=== PATIENT | male | born 1955 | race Caucasian/White ===

== ENCOUNTER 2018-06-27 02:07 | Outpatient (CLI) | payer BC, SELFPAY ==
[2018-06-27 11:44] LABS: Triglyceride 341 mg/dL (30-150)
== END 2018-06-27 02:08 ==
PROVIDERS: PCP Family Medicine; Visit Provider Family Medicine
DX: E78.1 Pure hyperglyceridemia (principal)
CPT/HCPCS: 36415; 84478

== ENCOUNTER 2019-01-31 02:26 | Outpatient (CLI) | payer BC, SELFPAY ==
[2019-01-31 07:48] LABS: Uric Acid 6.2 mg/dL (3.5-7.2)
== END 2019-01-31 02:46 ==
PROVIDERS: PCP Family Medicine; Visit Provider Family Medicine
DX: M10.9 Gout, unspecified (principal)
CPT/HCPCS: 36415; 84550

== ENCOUNTER 2019-03-21 02:09 | Outpatient (CLI) | payer BC, SELFPAY ==
[2019-03-21 08:49] LABS: Anion Gap 11.1 mmol/L (3-11); BUN 15 mg/dL (7-18); CO2 27.9 mmol/L (21.0-32.0); CREATININE 0.91 mg/dL (0.70-1.30); Calcium 8.8 mg/dL (8.5-10.1); Chloride 99 mmol/L (98-107); Cholesterol 187 mg/dL (50-200); Glucose 100 mg/dL (70-100); HDL Cholesterol 40 mg/dL (40-60); LDL CHOLESTEROL 68 mg/dL (<100); Sodium 138 mmol/L (136-145); Triglyceride 538 mg/dL (30-150)
[2019-03-21 08:59] LABS: Uric Acid 5.3 mg/dL (3.5-7.2)
== END 2019-03-21 02:29 ==
PROVIDERS: PCP Family Medicine; Visit Provider Family Medicine
DX: E78.1 Pure hyperglyceridemia (principal); M10.9 Gout, unspecified
CPT/HCPCS: 36415; 80048; 80061; 83721; 84550

== ENCOUNTER 2019-05-07 01:42 | Outpatient (CLI) | payer BC, SELFPAY ==
[2019-05-07 09:01] LABS: Calculated LDL 48; Cholesterol 153 mg/dL (50-200); HDL Cholesterol 46 mg/dL (40-60); Triglyceride 295 mg/dL (30-150)
== END 2019-05-07 02:02 ==
PROVIDERS: PCP Family Medicine; Visit Provider Family Medicine
DX: E78.1 Pure hyperglyceridemia (principal)
CPT/HCPCS: 36415; 80061; 83721

== ENCOUNTER 2019-09-29 09:20 | Emergency (ER) | payer BC, SELFPAY ==
[2019-09-29] VITALS (48 sets, daily range): BP systolic 157–197; BP diastolic 65–98; PULSE 76–96; RESP 10–26; TEMP 36.9; O2SAT 91–100
--- NOTE | 2019-09-29 09:33 | ED.GENADUL_ITS ---
Discharge Plan Disposition Patient Disposition: HOME Condition: Improving Discharge Details Chief Complaint: Chest Pain Clinical Impression: Atypical chest pain, Abdominal pain, Alcohol use, Hypertension Primary Care Provider: Choco Estrada ED Provider: Manjula Evans Home Meds and New Rx's Prescriptions: New famotidine [Pepcid] 20 mg tablet 20 mg PO DAILY Qty: 14 RF: 0 hydrochlorothiazide 12.5 mg tablet 12.5 mg PO DAILY Qty: 30 RF: 0 Continued allopurinol 300 mg tablet 300 mg PO DAILY Qty: 90 RF: 4 Flovent HFA 110 mcg/actuation HFA aerosol inhaler 2 puff IH BID Qty: 12 RF: 4 colchicine 0.6 mg Capsule 0.6 mg PO DAILY RF: 0 Discharge Instructions Instructions: Chest Pain (ED), Gastritis (ED), Esophageal Spasm (ED), Abdominal Pain (ED), Hypertension (ED) Additional Instructions: It is unclear what is the exact etiology of your symptoms today. It is possible that it could be musculoskeletal or gastrointestinal. You can alternate ice and heat to the affected area and purchase [id number] Lidoderm patches to help with muscular pain. For gastrointestinal pain, take the Pepcid daily for 2 weeks and consider cutting back on some alcohol use to see if this improves your symptoms. You were given instructions about esophageal spasm or gastritis for further information but it is unclear if this is the cause of your symptoms at this time. Follow-up with your primary care doctor within the next week for reevaluation and for referral for outpatient stress test if your symptoms persist or worsen. You can start taking the blood pressure medicine prescription you were given today or you can discuss this further with Dr. Estrada before starting. You can also follow-up with surgery outpatient for evaluation and for possible upper endoscopy to evaluate your esophagus and stomach lining. Return to the emergency department at any time if you develop any worsening or new concerning symptoms. Referrals: Juliet Mensah MD [ [facility] STAFF PHYSICIAN] - Discharge Data Discharge Physician: Manjula Evans Medical Decision Making [id number] -- 64-year-old male with a history of gout and hypertension presents with 5 episodes of left-sided chest pain over the past 2 days. Patient also is a daily drinker, approximately 4 hard liquor drinks daily, states he drinks 6 drinks a few days ago. Describes the pain is intermittent, sharp and stabbing, 6/10 at its worst that occurs for 1 second and then resolves. States it occurred this morning while lifting a laundry basket. He denies any known injury. He states the pain radiates from his left chest down to the right to his umbilicus. He denies any chest pain at present. He denies any associated symptoms of fever, cough, n ausea, vomiting, dizziness with this. He also complains of left upper quadrant mild dull aching pain currently 2/10 since yesterday. He admits to normal appetite. He denies any recent surgeries, travel, leg pain or swelling. EKG on arrival notes a rate of 91, sinus with T wave inversion in lead III. No acute ST ischemic changes. Differential diagnosis includes ACS, arrhythmia, electrolyte abnormality, pneumonia, PE, pancreatitis, GERD, gastritis, PUD. Will place an IV, bolus IV fluids, Pepcid, GI cocktail, screening labs as well as CT chest and abdomen. 1120 --labs and imaging reviewed. Troponin negative. Magnesium 1.3. CT chest and abdomen negative. Patient admits to one episode of the sharp chest pain. States his left upper quadrant pain is resolved. As he had 3 episodes today which is been more frequent since onset, will check a second troponin. His blood pressure has remained elevated above baseline. He states his systolic blood pressures in the 130s. Pressure 180s/80s. Patient seems extremely anxious. Will give a dose of Ativan and reassess. 1230 --repeat EKG notes a rate of 84, sinus with more diffuse T wave inversion noted in 2, 3, V4 and V6 which appears increased from first EKG. There is no acute ST elevation or depression. We will consult with [facility] cardiology to review EKGs. Nurse states that patient has had 3 more episodes of twinges of chest pain. He admits to some worsening of pain with lifting his head. Will place a Lidoderm patch and give a dose of Toradol. 1315 --discussed with [facility] cardiology who reviewed EKGs. Feel that the T wave inversion is nonspecific and not consistent with an acute coronary process. Second troponin negative. Patient states his symptoms are much improved. Discussed that I feel that his symptoms may be more GI related such as esophageal spasm, gastritis, GERD, peptic ulcer disease or musculoskeletal. Patient states he feels good to go home. BP remained mildly elevated here. Systolic 160s to 180s. A dose of hydrochlorothiazide was given as well as a prescription. He is advised to call his primary care doctor tomorrow to schedule follow-up appointment for reevaluation and for referral for outpatient stress test if symptoms persist or worsen. He was also given surgery follow-up information for evaluation and for possible upper endoscopy. He is advised to check his blood pressure regularly. He was advised to cut back on his alcohol use which may be contributing to his symptoms. He was advised to return here anytime if symptoms worsen or any new concerning symptoms. Medical Records Medical records reviewed: Yes I reviewed the patient's medical records. Imaging Data Radiologic Study: Radiologist's impression: CT Angiography Chest With Contrast Exam date and time: 09/29/2019 9:46 AM Clinical history: 64 years old, male; Other: Luq abd pain, R/O pancreatitis; Other: Chest pain, R/O pe TECHNIQUE: Imaging protocol: Computed tomographic angiography of the chest with intravenous contrast. 3D rendering: MIP reconstructed images were created and reviewed. Radiation optimization: All CT scans at this facility use at least one of these dose optimization techniques: automated exposure control; mA and/or kV adjustment per patient size (includes targeted exams where dose is matched to clinical indication); or iterative reconstruction. Contrast material: OMNIPAQUE 350; Contrast volume: 100 ml; Contrast route: IV; COMPARISON: CR CHEST 2 VIEWS PA,LAT 11/21/2014 10:10 AM FINDINGS: Pulmonary arteries: Normal. No pulmonary emboli. Aorta: Unremarkable. No aortic aneurysm. No aortic dissection. Lungs: Unremarkable. No consolidation. No masses. Pleural space: Unremarkable. No pneumothorax. No pleural effusion. Heart: Coronary artery calcification/stents noted. Lymph nodes: Unremarkable. No enlarged lymph nodes. Bones/joints: Unremarkable. No acute fracture. Soft tissues: Unremarkable. IMPRESSION: No evidence for pulmonary embolus. COMMENT: Preliminary interpretation is based on receipt of 2937 image(s). A final report will be issued subsequently. CT Abdomen And Pelvis With Contrast Exam date and time: 09/29/2019 9:46 AM Clinical history: 64 years old, male; Other: Luq abd pain, R/O pancreatitis; Other: Chest pain, R/O pe TECHNIQUE: Imaging protocol: Computed tomography of the abdomen and pelvis with intravenous contrast. Contrast material: OMNIPAQUE 350; Contrast volume: 100 ml; Contrast route: IV; COMPARISON: CR CHEST 2 VIEWS PA,LAT 11/21/2014 10:10 AM FINDINGS: Liver: Mild fatty liver. Gallbladder and bile ducts: Gallstones present. Pancreas: Normal. No ductal dilation. Spleen: Normal. No splenomegaly. Adrenals: Normal. No mass. Kidneys and ureters: Normal. No hydronephrosis. Stomach and bowel: Diverticulosis without acute diverticulitis. Appendix: Appendix well seen, within normal limits. Appendix well seen, within normal limits. Intraperitoneal space: Unremarkable. No free air. No significant fluid collection. Vasculature: Mild atherosclerotic change present in the vasculature. Lymph nodes: Unremarkable. No enlarged lymph nodes. Bladder: Unremarkable as visualized. Reproductive: Unremarkable as visualized. Bones/joints: Beam hardening artifact noted from right hip prosthesis. Soft tissues: Right sided fat containing inguinal hernia. IMPRESSION: No acute abnormality seen to account for symptoms. Lab Data Lab results reviewed: Yes I reviewed the patient's lab results. Labs: Laboratory Tests Range/Units 09/29/19 09/29/19 09/29/19 09:35 09:35 09:35 WBC (4.4-10.8) k/cumm 9.00 RBC (4.50-6.00) m/cumm 4.41 L Hgb (13.5-17.5) g/dL 14.6 Hct (40.0-50.0) % 43.2 MCV (80-95) fL 98.0 H MCH (27.0-33.0) pg 33.1 H MCHC (32.0-36.0) g/dL 33.8 RDW (11.8-14.1) % 12.9 Plt Count (130-400) x1000/uL 202 MPV (8.0-11.0) fL 10.7 Immature Gran % 0.7 Neutrophils % 74.2 Lymphocytes % 15.4 Monocytes % 8.4 Eosinophils % 0.7 Basophils % 0.6 Absolute Neutrophils (1.2-6.7) k/cumm 6.68 Absolute Lymphocytes (1.2-3.4) k/cumm 1.39 Absolute Monocytes (0.11-0.7) k/cumm 0.76 H Absolute Eosinophils (0.0-0.7) k/cumm 0.06 Absolute Basophils (0.0-0.2) k/cumm 0.05 Sodium (136-145) mmol/L 140 Potassium (3.5-5.1) mmol/L 3.5 Chloride (98-107) mmol/L 103 Carbon Dioxide (21.0-32.0) mmol/L 29.2 Anion Gap (3-11) mmol/L 7.8 BUN (7-18) mg/dL 11 Creatinine (0.70-1.30) mg/dL 1.20 Estimated GFR/1.73 m2 (mL/min/1.73m2) >= 60.00 Glucose (70-100) mg/dL 112 H Calcium (8.5-10.1) mg/dL 8.6 Magnesium (1.8-2.4) mg/dL 1.3 L Total Bilirubin (0.2-1.0) mg/dL 0.5 AST (15-37) U/L 50 H ALT (16-63) U/L 52 Alkaline Phosphatase (46-116) U/L 57 Troponin I (0.00-0.06) ng/mL < 0.05 Total Protein (6.4-8.2) g/dL 7.2 Albumin (3.4-5.0) g/dL 3.2 L Lipase (73-393) U/L 148 Range/Units 09/29/19 12:21 WBC (4.4-10.8) k/cumm RBC (4.50-6.00) m/cumm Hgb (13.5-17.5) g/dL Hct (40.0-50.0) % MCV (80-95) fL MCH (27.0-33.0) pg MCHC (32.0-36.0) g/dL RDW (11.8-14.1) % Plt Count (130-400) x1000/uL MPV (8.0-11.0) fL Immature Gran % Neutrophils % Lymphocytes % Monocytes % Eosinophils % Basophils % Absolute Neutrophils (1.2-6.7) k/cumm Absolute Lymphocytes (1.2-3.4) k/cumm Absolute Monocytes (0.11-0.7) k/cumm Absolute Eosinophils (0.0-0.7) k/cumm Absolute Basophils (0.0-0.2) k/cumm Sodium (136-145) mmol/L Potassium (3.5-5.1) mmol/L Chloride (98-107) mmol/L Carbon Dioxide (21.0-32.0) mmol/L Anion Gap (3-11) mmol/L BUN (7-18) mg/dL Creatinine (0.70-1.30) mg/dL Estimated GFR/1.73 m2 (mL/min/1.73m2) Glucose (70-100) mg/dL Calcium (8.5-10.1) mg/dL Magnesium (1.8-2.4) mg/dL Total Bilirubin (0.2-1.0) mg/dL AST (15-37) U/L ALT (16-63) U/L Alkaline Phosphatase (46-116) U/L Troponin I (0.00-0.06) ng/mL < 0.05 Total Protein (6.4-8.2) g/dL Albumin (3.4-5.0) g/dL Lipase (73-393) U/L ECG Data Attestation: I personally reviewed and interpreted this ECG (s) as follows: Interpretation: #1 --Rate of 91, sinus, T wave inversion in lead III. No acute ST elevation or depression. DC 144. QTc 448. QRS 90. #2 --Rate of 84, sinus, T wave inversion in 2, 3, V4 and V5 which appears more diffuse than previous EKG. No acute ST elevation or depression. DC 144. QTc 418. QRS 92. HPI General Mode of arrival: ambulatory . Date/Time Provider Initiated Documentation: 09/29/19 09:21 . Limitations to Documentation: no limitations . Information obtained by: patient . History of Present Illness 64 year old M presents to the emergency department with the chief complaint of Chest pain, described as moderate, with intensity rated at 6 (At its worst, none now). Quality is described as stabbing and sharp, and is localized to the chest. Patient abdomen (Goes in a diagonal path from left chest down to the right to umbilicus). Patient started experiencing this day(s) (2) and it has been intermittent. Rest improves symptom(s), Movement worsens symptoms . Patient notes other (Also left-sided abdominal pain that is dull and aching, constant, currently 2/10). Patient did receive the following treatments prior to arrival, none Related Data Home Medications Medication Instructions Recorded Confirmed fluticasone propionate 110 2 puff IH BID #12 gm 12/21/18 09/29/19 mcg/actuation HFA aerosol inhaler allopurinol 300 mg tablet 300 mg PO DAILY #90 tab 07/16/19 08/02/19 colchicine 0.6 mg PO DAILY 09/29/19 09/29/19 famotidine [Pepcid] 20 mg PO DAILY #14 tab 09/29/19 hydrochlorothiazide 12.5 mg PO DAILY #30 tab 09/29/19 Previous Rx's Medication Instructions Recorded fluticasone propionate 110 2 puff IH BID #12 gm 12/21/18 mcg/actuation HFA aerosol inhaler allopurinol 300 mg tablet 300 mg PO DAILY #90 tab 07/16/19 famotidine [Pepcid] 20 mg PO DAILY #14 tab 09/29/19 hydrochlorothiazide 12.5 mg PO DAILY #30 tab 09/29/19 Allergies Allergy/AdvReac Type Severity Reaction Status Date / Time lisinopril AdvReac Cough and Verified 09/29/19 09:32 exacerbation gout. General Stated Complaint: Chest Pain ELIJAH: 2 Review of Systems All systems reviewed & are unremarkable except as noted in HPI and below Constitutional Constitutional: Reports as per HPI, Denies chills and Denies fever(s) Eyes Eyes: Denies blurry vision ENT Ears, Nose, Mouth, and Throat: Denies dizziness, Denies sore throat and Denies throat swelling Cardiovascular Cardiovascular: Reports chest pain and Denies dyspnea Respiratory Respiratory: Denies cough and Denies dyspnea Gastrointestinal Gastrointestinal: Reports abdominal pain, Denies diarrhea and Denies vomiting Genitourinary Genitourinary: Denies hematuria and Denies dysuria Musculoskeletal Musculoskeletal: Denies back pain and Denies numbness Integumentary/Breasts Skin/Breast: Denies lesions and Denies rash Neurologic Neurologic: Denies dizziness, Denies focal weakness and Denies numbness Allergic/Immunologic Allergic/Immunologic: Denies throat swelling [facility] Medical History AK (actinic keratosis) Allergic bronchitis (Resolved) Folliculitis Hypertension (Chronic) will start amlodipine 2.5 mg daily reviewed dosing, effects, s/e f/u in 2-3 weeks for repeat BP Call earlier for new or concerning s/s Lateral epicondylitis of right elbow (Resolved) Surgical History Open Carpal Tunnel release (~09/2017) B/L; DR. GHOSH Replacement, Partial Hip Family History Mother , 82 Depression Father , 93 Cancer Heart disease Brother Cancer Brother Cancer Hyperlipidemia Maternal Grandfather , 72 No problems noted. Paternal Grandfather , 76 No problems noted. Maternal Grandmother , 82 No problems noted. Paternal Grandmother , 88 No problems noted. Social History Smoking/Tobacco Use Status: Never Second Hand Exposure: Yes Alcohol Intake: current Alcohol Intake frequency: 3 or more drinks per day Alcohol type: hard liquor Drug use: Never Substance use type: does not use Caregiver/Support person: No Housing: house Pets and animals: No Sexually active: Yes Do you think of yourself as: straight/heterosexual Current gender identity: male What is your relationship status?: How often do you talk on the phone with friends or family?: three or more times per week How often do you get together with friends or relatives?: three or more times per week How often do you attend congregation or anabaptism services?: 1-3 times per year Do you belong to any clubs or organized social groups?: yes Panel score (0-1 are the most socially isolated patients): 2 What type of physical activity do you participate in: walking Duration: 45-60 minutes/day Frequency: 3-4 times per week Anabel/Presybeterian: Jainism Special anabel needs: No Seatbelt use: always Helmet use: Yes Helmet use: always Drive intox or ride w/intox cryogenic transport driver: No Do you feel safe at home: Yes Do you feel safe in your relationship?: Yes Exam Const General: cooperative, healthy appearing and no acute distress HENMT Head: normal to inspection Face and sinus: normal facial exam Eyes General: appearance normal, both eyes and all related structures EOM: EOM intact bilaterally Neck Neck: normal visual inspection and No submandibular swelling Lymphatic: no lymphadenopathy noted Chest Chest: normal inspection of the chest and no tenderness Resp Effort & Inspection: normal respiratory effort and able to speak in complete sentences Auscultation: clear to auscultation bilaterally Cardio Rate: regular rate Rhythm: regular rhythm GI Inspection: normal to inspection Palpation: soft, not firm, not rigid and tender in the LUQ Auscultation: normal bowel sounds Back/Spine/Pelvis Pelvis: no pain with anterior-posterior compression Skin General skin exam: no rashes or lesions noted Neuro General: alert, awake and oriented x3 Cognition: normal cognition Speech: speech normal Motor: muscle tone normal throughout Sensory Exam: no sensory deficits noted Extrem General: normal to inspection, full ROM, normal capillary refill, no calf tenderness bilaterally and no edema Psych Appearance: grossly normal Mental Status: mental status grossly normal Speech and Movement: speech and movement normal Affect: normal affect Course Vital Signs Vital signs: Vital Signs Temperature 98.4 F 09/29/19 09:27 Pulse 90 09/29/19 09:27 Respiratory Rate 18 09/29/19 09:27 Blood Pressure 181/83 H 09/29/19 09:27 Pulse Oximetry 99 09/29/19 09:27 Temperature 98.4 F 09/29/19 09:27 Temperature Source Skin 09/29/19 09:27 Pulse 90 09/29/19 09:27 Respiratory Rate 18 09/29/19 09:27 Respiratory Effort 09/29/19 09:30 Blood Pressure 181/83 H 09/29/19 09:27 Blood Pressure Position Supine 09/29/19 09:27 Pulse Oximetry 99 09/29/19 09:27 Oxygen Delivery Method Room Air 09/29/19 09:27 Oxygen Flow Rate 0 09/29/19 09:27 Pain Level 8 09/29/19 09:27
--- NOTE | 2019-09-29 09:45 | DI.CT_ITS ---
EXAM: CT CHEST PE ABD PELVIS W CLINICAL HISTORY: chest pain, LUQ abd pain, r/o pancreatitis,? PE TECHNIQUE: Post 100 cc Omnipaque [address] angiography was performed with multi-slice acquisition and multi-planar and/or 3D reconstruc tions. COMPARISON: ABDOMEN FLAT PLATE from 08/16/2010 CHEST 2 VIEWS PA,LAT from 11/21/2014 FINDINGS: Chest CT: There is no evidence of pulmonary emboli or aortic dissection. The aorta is normal in gamal meter. There are mild coronary artery calcifications. No pleural or pericardial effusions are seen. Lungs are expiratory. No infiltrate, mass or adenopathy is seen. There are mild degenerative dunlap es in the thoracic spine. Abdomen and pelvic CT: Liver shows fatty infiltration. Stones are noted in the gallbladder. There i s no gallbladder wall thickening, pericholecystic fluid or biliary dilatation. The spleen, pancreas, adrenals and kidneys are unremarkable. The appendix appears normal. There are multiple diverticula in the sigmoid colon but no evidence of diverticulitis. There is no bowel wall thickening or dilata tion. There is a normal quantity of stool. There is a right hip prosthesis creating artifact in the pelvis. The prostate appears mildly enlarged. The bladder is unremarkable. There is a small fatty containing right inguinal hernia. Aorta is normal in diameter. Degenerative disc changes seen at L 5-S1. IMPRESSION: No evidence of pulmonary emboli or other acute abnormality. Gallstones and fatty liver are incidenta lly noted.
[2019-09-29 09:49] LABS: Abs Immature Grans 0.06 k/cumm (0.0-0.09); Absolute Basophil Count 0.05 k/cumm (0.0-0.2); Absolute Eosinophil Count 0.06 k/cumm (0.0-0.7); Absolute Lymphocyte Count 1.39 k/cumm (1.2-3.4); Absolute Monocyte Count 0.76 k/cumm (0.11-0.7); Absolute Neutrophil Count 6.68 k/cumm (1.2-6.7); Basophils % 0.6; Eosinophils % 0.7; HCT 43.2 % (40.0-50.0); HGB 14.6 g/dL (13.5-17.5); Immature Grans % 0.7; Lymphocytes % 15.4; Mean Corp. HGB Concentration 33.8 g/dL (32.0-36.0); Mean Corpuscular Hemoglobin 33.1 pg (27.0-33.0); Mean Platelet Volume 10.7 fL (8.0-11.0); Monocytes % 8.4; Neutrophils % 74.2; Platelet Count 202 x1000/uL (130-400); RBC 4.41 m/cumm (4.50-6.00); RBC Distribution Width 12.9 % (11.8-14.1)
[2019-09-29 10:05] LABS: ALT 52 U/L (16-63); AST 50 U/L (15-37); Albumin 3.2 g/dL (3.4-5.0); Alkaline Phosphatase 57 U/L (46-116); Anion Gap 7.8 mmol/L (3-11); BUN 11 mg/dL (7-18); Bilirubin, Total 0.5 mg/dL (0.2-1.0); CO2 29.2 mmol/L (21.0-32.0); Calcium 8.6 mg/dL (8.5-10.1); Chloride 103 mmol/L (98-107); Glucose 112 mg/dL (70-100); Magnesium 1.3 mg/dL (1.8-2.4); Potassium 3.5 mmol/L (3.5-5.1); Sodium 140 mmol/L (136-145); Total Protein 7.2 g/dL (6.4-8.2)
[2019-09-29 10:10] LABS: Lipase 148 U/L (73-393); Troponin I < 0.05 ng/mL (0.00-0.06)
[2019-09-29] MEDS: Omnipaque 350 MG/ML 100 ML BTL IJ (10:40)
[2019-09-29] MEDS: Normal Saline Flush 10 ML SYR IVP (10:40)
[2019-09-29] MEDS: FAMOTIDINE 20 MG/50 ML BAG 200 MG IVPB (10:40)
--- NOTE | 2019-09-29 11:11 | DI.VRAD_ITS ---
PROCEDURE INFORMATION: Exam: CT Angiography Chest With Contrast Exam date and time: 09/29/2019 9:46 AM Clinical history: 64 years old, male; Other: Luq abd pain, R/O pancreatitis; Other: Chest pain, R/O pe TECHNIQUE: Imaging protocol: Computed tomographic angiography of the chest with intravenous contrast. 3D rendering: MIP reconstructed images were created and reviewed. Radiation optimization: All CT scans at this facility use at least one of these dose optimization techniques: automated exposure control; mA and/or kV adjustment per patient size (includes targeted exams where dose is matched to clinical indication); or iterative reconstruction. Contrast material: OMNIPAQUE 350; Contrast volume: 100 ml; Contrast route: IV; COMPARISON: CR CHEST 2 VIEWS PA,LAT 11/21/2014 10:10 AM FINDINGS: Pulmonary arteries: Normal. No pulmonary emboli. Aorta: Unremarkable. No aortic aneurysm. No aortic dissection. Lungs: Unremarkable. No consolidation. No masses. Pleural space: Unremarkable. No pneumothorax. No pleural effusion. Heart: Coronary artery calcification/stents noted. Lymph nodes: Unremarkable. No enlarged lymph nodes. Bones/joints: Unremarkable. No acute fracture. Soft tissues: Unremarkable. IMPRESSION: No evidence for pulmonary embolus. COMMENT: Preliminary interpretation is based on receipt of 2937 image(s). A final report will be issued subsequently. PROCEDURE INFORMATION: Exam: CT Abdomen And Pelvis With Contrast Exam date and time: 09/29/2019 9:46 AM Clinical history: 64 years old, male; Other: Luq abd pain, R/O pancreatitis; Other: Chest pain, R/O pe TECHNIQUE: Imaging protocol: Computed tomography of the abdomen and pelvis with intravenous contrast. Contrast material: OMNIPAQUE 350; Contrast volume: 100 ml; Contrast route: IV; COMPARISON: CR CHEST 2 VIEWS PA,LAT 11/21/2014 10:10 AM FINDINGS: Liver: Mild fatty liver. Gallbladder and bile ducts: Gallstones present. Pancreas: Normal. No ductal dilation. Spleen: Normal. No splenomegaly. Adrenals: Normal. No mass. Kidneys and ureters: Normal. No hydronephrosis. Stomach and bowel: Diverticulosis without acute diverticulitis. Appendix: Appendix well seen, within normal limits. Appendix well seen, within normal limits. Intraperitoneal space: Unremarkable. No free air. No significant fluid collection. Vasculature: Mild atherosclerotic change present in the vasculature. Lymph nodes: Unremarkable. No enlarged lymph nodes. Bladder: Unremarkable as visualized. Reproductive: Unremarkable as visualized. Bones/joints: Beam hardening artifact noted from right hip prosthesis. Soft tissues: Right sided fat containing inguinal hernia. IMPRESSION: No acute abnormality seen to account for symptoms. COMMENT: Preliminary interpretation is based on receipt of 2937 image(s). A final report will be issued subsequently. Dictated and Authenticated by: Meche Schmidt MD. Ordering:LINA Fair MD
[2019-09-29] MEDS: LORazepam 2 MG/ML VIAL 0.5 MG IVP (12:50)
[2019-09-29 13:11] LABS: Troponin I < 0.05 ng/mL (0.00-0.06)
[2019-09-29] MEDS: Lidocaine 5% Patch 1 PATCH TP (13:14)
[2019-09-29] MEDS: Magnesium Oxide 400 MG TAB 800 MG PO (13:15)
[2019-09-29] MEDS: Ketorolac 30 MG/ML VIAL IVP (13:15)
[2019-09-29] MEDS: hydroCHLOROthiazide 12.5 MG TAB PO (13:38)
== END 2019-09-29 14:11 | disposition home or self-care (01) ==
PROVIDERS: Emergency Provider Physician Assistant; PCP Family Medicine
DX: R07.89 Other chest pain (principal); R10.12 Left upper quadrant pain; F10.10 Alcohol abuse, uncomplicated; I10 Essential (primary) hypertension
CPT/HCPCS: 36415; 71275; 74177; 80053; 83690; 93005; 96374; 96375; 99285; 83735; 84484; 85025; 93010; J1885; J2060; J3490

== ENCOUNTER 2021-03-17 04:35 | Outpatient (CLI) | payer BC, SELFPAY ==
[2021-03-17 08:35] LABS: CREATININE 0.9 mg/dL (0.70-1.30); Potassium 4.2 mmol/L (3.5-5.1)
[2021-03-17 08:56] LABS: Hemoglobin A1C 5.1 % (<5.7)
[2021-03-17 10:30] LABS: Calculated LDL 94 mg/dL (<100); Cholesterol 197 mg/dL (<200); HDL Cholesterol 53 mg/dL (40-60); Triglyceride 254 mg/dL (<150)
== END 2021-03-17 04:36 | disposition home or self-care (01) ==
LOC: LBO 04:35
PROVIDERS: PCP Nurse Practitioner; Visit Provider Nurse Practitioner
DX: I10 Essential (primary) hypertension (principal); E78.1 Pure hyperglyceridemia; Z13.1 Encounter for screening for diabetes mellitus
CPT/HCPCS: 36415; 80061; 82565; 83036; 84132

== ENCOUNTER 2021-03-24 03:10 | Outpatient (CLI) | payer BC, SELFPAY | END 2021-03-24 03:11 | disposition home or self-care (01) | LOC: LBO 03:10 | PROVIDERS: PCP Nurse Practitioner; Visit Provider Nurse Practitioner | DX: Z12.5 Encounter for screening for malignant neoplasm of prostate (principal); Z80.42 Family history of malignant neoplasm of prostate | CPT/HCPCS: 36415; 84153 ==

== ENCOUNTER 2021-05-24 02:20 | Outpatient (CLI) | payer BC, SELFPAY ==
--- NOTE | 2021-05-24 12:34 | DI.RAD_ITS ---
Exam(s) XR CERVICAL SPINE COMP 4-5V EXAM: XR CERVICAL SPINE COMP 4-5V CLINICAL HISTORY: rt cervical radiculopathy,m54.12. TECHNIQUE: 2D digital imaging was performed. COMPARISON: No exams were available for comparison FINDINGS: There is no evidence of fracture, listhesis, nor offset of the spinal laminar line. All the disc spa marlena exhibit normal height. On the oblique views there are no prominent Luschka joint osteophytes. N o cervical ribs. No prominent facet arthropathy. No focal osseous lesions. IMPRESSION: No significant radiographic findings. If clinically indicated follow-up MRI can be performed DATA REPOSITORY: RADIATION DOSE DELIVERED:
== END 2021-05-24 02:40 ==
PROVIDERS: PCP Nurse Practitioner; Visit Provider Nurse Practitioner
DX: M54.12 Radiculopathy, cervical region (principal)
CPT/HCPCS: 72050

== ENCOUNTER 2021-06-11 04:33 | Outpatient (CLI) | payer BC, SELFPAY ==
--- NOTE | 2021-06-11 07:00 | DI.MRI_ITS ---
Exam(s) MR THORACIC SPINE WO EXAM: MR THORACIC SPINE WO CLINICAL HISTORY: cervical radiculopathy,rt shoulder pain,m54.12,m25.511. TECHNIQUE: Multiplanar multisequence MRI of the Thoracic spine was performed. COMPARISON: No exams were available for comparison FINDINGS: Bones: The vertebral body heights are well maintained. There is mild exaggeration of the thoracic kyp hosis centered at T4-5. the signal characteristics are unremarkable. There is a hemangioma in the T5 vertebral body. There are endplate degenerative signal changes at multiple levels in the thoracic sp ine. Cord: The thoracic cord is normal size and signal intensity. No intrinsic cord lesion is present. Discs: No disc herniation or bulge is present. Soft tissues: Normal. T1-2: No disc herniation or bulge is identified.No central spinal canal or neural foraminal stenosis. T2-3: No disc herniation or bulge is identified.No central spinal canal or neural foraminal stenosis. T4-5: No disc herniation or bulge is identified.No central spinal canal or neural foraminal stenosis. T5-6: No disc herniation or bulge is identified.No central spinal canal or neural foraminal stenosis. T6-7: No disc herniation or bulge is identified.No central spinal canal or neural foraminal stenosis. T7-8: Mild diffuse disc bulge.No central spinal canal or neural foraminal stenosis. T8-9: No disc herniation or bulge is identified.No central spinal canal or neural foraminal stenosis. T9-10: No disc herniation or bulge is identified.No central spinal canal or neural foraminal stenosis . T10-11:No disc herniation or bulge is identified.No central spinal canal or neural foraminal stenosis . T11-12: No disc herniation or bulge is identified.No central spinal canal or neural foraminal stenosi s. T12-L1: No disc herniations or bulges are present. No central spinal canal or neural foraminal steno sis. IMPRESSION: No focal disc herniation, central spinal canal or neural foraminal stenosis in the thoracic spine. DATA REPOSITORY:
--- NOTE | 2021-06-11 07:00 | DI.MRI_ITS ---
Exam(s) MR CERVICAL SPINE WO EXAM: MR CERVICAL SPINE WO CLINICAL HISTORY: cervical radiculopathy,m54.12 TECHNIQUE: Multiplanar multisequence MRI of the cervical spine was performed without intravenous con trast. COMPARISON: No exams were available for comparison FINDINGS: BONES: Vertebral body heights are maintained. Intervertebral disc spaces are normal. Alignment is nor mal. Bone marrow signal intensity is within normal limits. CERVICAL CORD: Craniovertebral junction is unremarkable. The cervical cord is normal size and signal intensity. SOFT TISSUES: Unremarkable. C2-3: No disc herniation or bulge is identified. No significant central spinal canal or neural forami nal stenosis. C3-4: No disc herniation or bulge is identified. There is prominence of the left uncovertebral joint causing mild left neural foraminal stenosis. No central spinal canal or right neural foraminal steno sis. C4-5: There is a small central disc herniation. No significant central spinal canal or neural forami nal stenosis C5-6: There is a right paracentral disc herniation which does extend partially into the right neural foramen. There is resultant mild right neural foraminal narrowing. No significant central spinal ca nal stenosis is seen. No significant left neural foraminal stenosis. C6-7: No disc herniation or bulge is identified. No significant central spinal canal stenosis. There are mild hypertrophic changes seen at the left uncovertebral joint resulting in mild left neural for aminal narrowing. No significant right neural foraminal narrowing. C7-T1: No disc herniation or bulge is identified. No significant central spinal canal or neural georgette inal stenosis IMPRESSION: Multilevel degenerative changes throughout the cervical spine resulting in multilevel neural foramina l stenosis as described above. DATA REPOSITORY:
== END 2021-06-11 04:53 ==
PROVIDERS: PCP Nurse Practitioner; Visit Provider Nurse Practitioner
DX: M25.511 Pain in right shoulder (principal); M47.22 Other spondylosis with radiculopathy, cervical region; M48.02 Spinal stenosis, cervical region
CPT/HCPCS: 72141; 72146

== ENCOUNTER 2021-07-13 01:54 | Outpatient (CLI) | payer BC, SELFPAY ==
--- NOTE | 2021-07-13 | DI.RAD_ITS ---
Exam(s) XR SHOULDER RT COMPLETE 2+V EXAM: XR SHOULDER RT COMPLETE 2+V CLINICAL HISTORY: PROGRESSIVE ATRAUMATIC RT SHOULDER PAIN WITH MOVEMENT, M25.511. TECHNIQUE: 2D digital imaging was performed. COMPARISON: No exams were available for comparison FINDINGS: BONES: No acute fracture is present. No bony destructive lesion is seen. JOINTS: No dislocation present. Mild degenerative changes are seen at the glenohumeral joint with mi ld joint space narrowing and an osteophyte off the inferior aspect of the humeral head. SOFT TISSUE: Normal. IMPRESSION: Mild degenerative changes at the glenohumeral joint. DATA REPOSITORY: RADIATION DOSE DELIVERED:
== END 2021-07-13 02:14 ==
PROVIDERS: PCP Nurse Practitioner; Visit Provider Physician Assistant Medical
DX: M25.511 Pain in right shoulder (principal); M19.011 Primary osteoarthritis, right shoulder
CPT/HCPCS: 73030

== ENCOUNTER 2021-08-02 01:25 | Outpatient (CLI) | payer BC, SELFPAY ==
--- NOTE | 2021-08-02 | DI.MRI_ITS ---
Exam(s) MR UPPER JOINT RT WO EXAM: MR UPPER JOINT RT WO CLINICAL HISTORY: RT SHOULDER PAIN, POSITIVE MANEUVERS ON EXAM,M25.511 TECHNIQUE: Multiplanar multisequence MRI of the shoulder was performed. COMPARISON: CR XR SHOULDER RT COMPLETE 2+V from 07/13/2021 FINDINGS: MARROW:There is no evidence of fracture, Hill-Sachs deformity, nor ominous osseous lesions. There is a conglomeration of multiple small degenerative subarticular cysts on the posterolateral aspect of th e humeral head with combined measurement of 6 x 6 millimeters, this immediately subjacent to the inse rtional tendon of the infraspinatus. ROTATOR CUFF MECHANISM: AC JOINT/ACROMIUM: Mild degenerative changes. No prominent downgoing osteophytes. Undersurface of t he acromion is flat. No impingement hook at this level.. There is no evidence of os acromiale. Supraspinatus: Mild tendinitis signal. No tear. No atrophy. Infraspinatus: Intact. No evidence of tear nor muscle atrophy. Teres Minor: Intact. No evidence of tear nor muscle atrophy. Subscapularis/anterior cuff: There is intrasubstance signal abnormality at the musculotendinous junct ion of multipennate insertional fibers of the subscapularis-anterior cuff. No full-thickness tear BICEPS Tendon/labrum: Not displaced from the intertubercular groove although there is a small amount of fluid within the tendon sheath at this level. There is some increased signal seen within the farida ps tendon at and proximal to it is attachment to the anterosuperior labrum and there is also some sig nal abnormality in the superior labrum posterior to the biceps insertion site, consistent with elemen t of SLAP-type tear of the superior labrum. There is also tearing of the anterior labrum. Slight irregularity of the posterior labrum noted. In ferior labrum also exhibits some regularity. Degenerative subarticular cysts are seen in the osseous glenoid GLENOHUMERAL JOINT: There is significant degenerative osteoarthritic changes in the glenohumeral join t with significant cartilage thinning and there are opposing osteophytes in the inferior surfaces of the humeral head and osseous glenoid. Also degenerative subarticular cysts in the inferior and mid a spect of the osseous glenoid. No evidence of capsular tear. The inferior glenohumeral ligament is i ntact. QUADRILATERAL SPACE: No evidence of mass in the region of the axillary nerve and dorsal circumflex hu meral vessels. Visualized triceps muscle at this level appears unremarkable. IMPRESSION: 1. Main finding here is significant osteoarthritic degenerative change in the glenohumeral joint with articular cartilage loss and opposing osteophytes on the inferior articular surfaces of the humeral head and osseous glenoid, as well as degenerative subarticular cysts as described above. 2. In addition, there is multilevel labral tearing at the level of the anterior and superior labrum. Inferior labrum also somewhat irregular. Mild increased signal noted in the biceps tendon but witho ut high-grade tear nor displacement. Mild tenosynovitis of its tendon sheath is evident. 3. Significant signal abnormality at the musculotendinous junction of the anterior cuff-subscapularis but no full thickness tear nor atrophy. DATA REPOSITORY:
--- OUTSIDE RECORDS SUMMARY | 2021-08-02 01:27 | XMS_ITS ---
:1955 Author Organization [facility] Address [address] [place] [address] Care Team Providers Name Role Phone Dale Mabry Unavailable Unavailable PROBLEMS Type Condition ICD9-CM MJP29-[id number] Onset Condition SNOMED Cod e Code Code Dates Status Problem Pes planovalgus Q66.6 Active Problem Gout M10.9 Active Problem Gouty arthritis M10.9 Active 1074 [id number] of right foot Problem Hallux valgus M20.12 Active 545039 01 (acquired), left foot ALLERGIES No Known Allergies ENCOUNTERS Encounter Location Date Diagnosis [address], 14 Nov, 2019 Gout M10.9 ; [place] [address] left foot M20.5X 2 ; Pes planovalgus Q66. 6 and Hallux valgus (acquired ), left foot M20.[address], 13 Nov, 2019 [place] [address] IMMUNIZATIONS No Known Immunizations SOCIAL HISTORY Qualifiers Date Never Smoker REASON FOR REFERRAL FUNCTIONAL STATUS PLAN OF CARE Activity Details Follow Up prn Reason: VITAL SIGNS Height 66 in 2019-11-26 Weight 174 lbs 2019-11-26 BMI 28.08 kg/m2 2019-11-26 Temperature 98 degrees Fahrenheit 2019-11-26 Heart Rate 89 /min 2019-11-26 Respiratory Rate 18 /min 2019-11-26 Oximetry 98 % 2019-11-26 Blood pressure systolic 128 mm Hg 2019-11-26 Blood pressure diastolic 78 mm Hg 2019-11-26 MEDICATIONS Medication Instructions Dosage Frequency Start End Duration Statu s Date Date Famotidine 20 MG Orally Once a 1 tablet 24h 30 day(s ) Not-Ilya day at bedtime ing as needed Fluticasone Nasally Once a 1 spray in 24h 30 day(s) Active Propionate 50 MCG/ACT day each nostril Allopurinol 300 MG Orally Once a 1 tablet 24h Active day Losartan Potassium 50 Orally Once a 1 tablet 24h 30 day(s) Active MG day predniSONE 10 MG Orally Once a 1 tablet 24h 30 day(s ) Active day Colchicine 0.6 MG Orally Once a 1 tablet 24h 30 day( s) Active day hydroCHLOROthiazide as Acti ve 12.5 MG directed PROCEDURES Procedure Date Ordered Result Body Site POD-xray foot, 3 views Nov 26, 2019 INTERP FOOT, 3 VIEWS Nov 26, 2019 RESULTS Name Result Date Reference Range POD Foot, L 3V (POD2) REASON FOR VISIT Gout referral done, new POD PT. mrr, pt referred by Dr. Choco Estrada mrr, pt states that the left and right bunmion area of big toes are extremely tender and sore. , pt states that a blood pressure medication that he was placed on in February 2019 made his gout flair terribly. mrr, chart update Insurance Providers [facility] Member Patient Patient Patient Patient Patient Subscriber Subscriber Subscriber Group Insurance Plan Plan Plan Plan ID Relationship Address Phone Name Date of ID Name Date of No Type Insurance Insurance Insurance Coverage to Subscriber Address Phone Name Dates SELF PAY [address] SELF PAY self ZEKE [id number] [place] [address] [place] BLUE CROSS [phone] BLUE CROSS self ZEKE 1 [id number] OF [facility] [address] [id number] [id number] [id number] MEDICAL (GENERAL) HISTORY Type Description Date Medical History Acute gouty arthritis Medical History HTN (hypertension) Surgical History right hip replacement [place] 2005
== END 2021-08-02 01:45 ==
PROVIDERS: PCP Nurse Practitioner; Visit Provider Physician Assistant Medical
DX: M25.511 Pain in right shoulder (principal); M19.011 Primary osteoarthritis, right shoulder; S43.431A Superior glenoid labrum lesion of right shoulder, initial encounter; X58.XXXA Exposure to other specified factors, initial encounter
CPT/HCPCS: 73221

== ENCOUNTER 2022-03-18 02:56 | Outpatient (CLI) | payer BC, SELFPAY ==
[2022-03-18 10:20] LABS: Anion Gap 10.9 mmol/L (3-11); BUN 16 mg/dL (7-18); CO2 27.1 mmol/L (21.0-32.0); CREATININE 0.8 mg/dL (0.70-1.30); Calcium 8.5 mg/dL (8.5-10.1); Chloride 101 mmol/L (98-107); Cholesterol 194 mg/dL (<200); Glucose 109 mg/dL (74-106); HDL Cholesterol 43 mg/dL (40-60); Potassium 3.9 mmol/L (3.5-5.1); Sodium 139 mmol/L (136-145); Triglyceride 531 mg/dL (<150)
[2022-03-18 10:43] LABS: LDL CHOLESTEROL 62 mg/dL (<100)
[2022-03-18 18:42] LABS: PSA, Screening 0.9 ng/mL (<=4.5)
== END 2022-03-18 02:57 | disposition home or self-care (01) ==
LOC: LBO 02:56
PROVIDERS: PCP Nurse Practitioner; Visit Provider Nurse Practitioner
DX: E78.1 Pure hyperglyceridemia (principal); I10 Essential (primary) hypertension; Z12.5 Encounter for screening for malignant neoplasm of prostate; Z80.42 Family history of malignant neoplasm of prostate
CPT/HCPCS: 36415; 80048; 80061; 83721; 84153

== ENCOUNTER 2022-07-19 01:59 | Outpatient (CLI) | payer BC, SELFPAY ==
[2022-07-19 12:36] LABS: Source Nasal/Nares
[2022-07-19 18:15] LABS: COVID-19 PCR Negative (Negative)
== END 2022-07-19 02:00 | disposition home or self-care (01) ==
LOC: LBO 02:00
PROVIDERS: PCP Nurse Practitioner; Visit Provider Student in an Organized Health Care Education/Training Program
DX: Z20.822 Contact with and (suspected) exposure to COVID-19 (principal)
CPT/HCPCS: 87635

== ENCOUNTER 2022-07-21 09:08 | Day surgery (SDC) | payer BC, SELFPAY ==
--- NOTE | 2022-07-20 19:31 | W.ANESPRE ---
General Info Date of Service Date Performed: 07/21/22 Height: 5 ft 5 in Weight: 74.843 kg Body Mass Index (BMI): 27.4 Surgical Procedure: Operation Date: 07/21/22 11:10 Proposed Procedure Side Surgeon p Shoulder Rotator Cuff Arthroscopic w/Extensive Debridement, Bicep Tenodesis, Subacromial Decompression Right Jamar Hearn MD Meds Allergies and Home Medications Allergies Allergy/AdvReac Type Severity Reaction Status Date / Time lisinopril AdvReac Cough and Verified 07/21/22 09:31 exacerbation gout. Home Medication Medication Instructions Recorded carboxymethylcellulose sodium 0.5 1 drp ophthalmic (eye) BID 03/23/21 % eye drops in a dropperette (Refresh Plus) colchicine 0.6 mg capsule 0.6 mg PO DAILY PRN gout #30 caps 06/21/21 allopurinol 300 mg tablet 300 mg PO DAILY #90 tabs 10/28/21 atorvastatin 40 mg tablet 40 mg PO QHS #90 tabs 04/12/22 hydrochlorothiazide 12.5 mg tablet 12.5 mg PO DAILY #90 tabs 04/12/22 losartan 50 mg tablet 50 mg PO DAILY #90 tabs 04/12/22 Current Visit Medications: Current Medications Generic Name Dose Route Start Last Admin Trade Name Freq PRN Reason Stop Dose Admin Ringer's Solution 1,000 mls @ 30 mls/hr 07/21/22 06:00 IV 08/19/22 23:59 INFUSION BELKYS Cefazolin Sodium/Dextrose 2 gm in 50 mls @ 100 mls/hr 07/21/22 06:00 Ancef Duplex IVPB 08/19/22 23:59 PREOP BELKYS IV Miscellaneous Supplies 1 each 07/21/22 06:00 Iv Access IV 08/19/22 23:59 DIRECTED BELKYS Sodium Chloride 0 ml 07/21/22 06:00 Normal Saline Flush 10 Ml Syr IV 08/19/22 23:59 PRN PRN Sodium Chloride 0 ml 07/21/22 06:00 Normal Saline 10 Ml Vial IJ 08/19/22 23:59 DIRECTED PRN Sterile Water 0 ml 07/21/22 06:00 Water,Injection,Sterile 10 Ml Vial IJ 08/19/22 23:59 DIRECTED PRN PFSH Active Problems Active Problems: Problem Status Onset Code SLAP lesion of right shoulder S43.431A Arthritis of right shoulder region M19.011 Family history of prostate cancer Z80.42 Essential hypertension I10 Gout M10.9 Hypertriglyceridemia without hypercholesterolemia 05/15/18 E78.1 Medical History Medical History AK (actinic keratosis) Allergic bronchitis Bilateral carpal tunnel syndrome (07/31/17) Bilateral repair sep 2017 Cervical radiculopathy Folliculitis Lateral epicondylitis of right elbow Sensorineural hearing loss, bilateral (04/04/16) Surgical History Surgical History History of right hip replacement (04/26/06) Open Carpal Tunnel release (~09/2017) B/L; DR. GHOSH Replacement, Partial Hip Tobacco Smoking/Tobacco Use Status: Never Passive smoking exposure: Yes Second hand exposure: Yes Alcohol Alcohol Intake: current Alcohol intake frequency: a few times a week Alcohol type: hard liquor Substance Use Substance use: Never Substance use type: does not use Vital Signs and Lab Results Lab Results Blood Type / Crossmatch: No Data to Display Complete Blood Count: No Data to Display Complete Metabolic Panel: No Data to Display Liver Function Panel: No Data to Display Coagulation Panel: No Data to Display Cardiac Panel: No Data to Display Arterial Blood Gas: No Data to Display Venous Blood Gas: No Data to Display Pancreas Panel: No Data to Display Thyroid Panel: No Data to Display Infectious Disease: Coronavirus (COVID-19)(PCR) Negative (Negative) 07/19/22 08:14 Coronavirus 2019 Source Nasal/Nares 07/19/22 08:14 Blood Cultures: No Data to Display Toxicology Panel: No Data to Display Anesthesia Assessment and Plan Anesthesia History Personal History: No History of Anesthesia Complications Family History: No Family History of Anesthesia Complications Exercise Tolerance Exercise Tolerance: Metabolic Equivalents>4 Cardiac & Pulmonary Exam Cardiac Exam: Normal S1/S2 Heart Sounds Pulmonary Exam: Clear Bilateral Breath Sounds Implantable Cardiac Device Does patient have a Pacemaker or an ICD?: No Airway Exam Known Difficult Airway: No Mallampati Class: 2 Mouth Opening: Normal (> 3cm) Thyromental Distance: Greater than 3 cm Neck Range of Motion: Full ROM Neck Circumference: Normal Teeth Condition: Normal Dentition ASA Classification ASA Score: ASA 2 Emergency Case?: No NPO Status NPO Status: NPO Clears >2 hours, Solids >8 hours Anesthesia Plan Resuscitation Status: Full Code Anesthesia Technique: General Anesthesia Airway Planned: Endotracheal Tube Pain Management: Surgeon and patient request nerve block Monitors Used: Standard Monitors Preoperative Comments:: 67 yo male for right shoulder scope. Sig PMHx: cervical stenosis, HTN, never smoker occ EtOH. Previous Anes: CTS x 2 as GA without airway.
[2022-07-21] VITALS (9 sets, daily range): BP systolic 100–125; BP diastolic 55–84; PULSE 59–76; RESP 16–21; TEMP 36.2–36.6; O2SAT 92–98; BMI 27.4
[2022-07-21] MEDS: Lactated Ringers 1,000 ML 30 ML IV (09:58)
[2022-07-21] MEDS: ceFAZolin 2 GM/50 ML BAG IVPB (11:19)
--- NOTE | 2022-07-21 12:30 | PDOC.DSDIS_ITS ---
Discharge Plan Disposition Patient Disposition: HOME Condition: Stable Discharge Details Reason For Visit: Right shoulder surgery Attending Provider: Jamar Hearn Primary Care Provider: Jessica Juarez Home Meds and New Rx's Prescriptions: New aspirin 81 mg tablet,delayed release (DR/EC) 81 mg PO DAILY 14 Days Qty: 14 0RF naproxen 250 mg tablet 250 - 500 mg PO BID PRNQty: 40 0RF Rx Instructions: take with a meal oxycodone 5 mg tablet 5 - 10 mg PO Q4H MDD 30 mg PRN (Reason: moderate to severe pain) Qty: 18 0RF Continued carboxymethylcellulose sodium [Refresh Plus] 0.5 % dropperette 1 drp ophthalmic (eye) BID atorvastatin 40 mg tablet 40 mg PO QHS Qty: 90 4RF hydrochlorothiazide 12.5 mg tablet 12.5 mg PO DAILY Qty: 90 4RF losartan 50 mg tablet 50 mg PO DAILY Qty: 90 4RF colchicine 0.6 mg capsule 0.6 mg PO DAILY PRN (Reason: gout) Qty: 30 0RF allopurinol 300 mg tablet 300 mg PO DAILY Qty: 90 4RF Discharge Instructions Additional Instructions: Surgery: Right shoulder arthroscopy with biceps tenodesis, extensive debridement, and subacromial decompression. Activity: You should gradually increase range of motion motion and use of your shoulder. You may use your shoulder for all regular activities as long as you protect the biceps repair. Avoid weighted elbow flexion, reaching overhead, and lifting away from body for approximately 6 to 8 weeks. You may use the sling whenever you are out of the house for a few weeks. At home it is best to remove the sling and rest the arm on a pillow at your side or support the operative side with your other hand. A physical therapy prescription will be sent elect ronically to start in about 2 weeks. Prescriptions: Aspirin 81 mg take 1 daily to prevent a blood clot for 2 weeks Naproxen 250 mg take 1-2 every 12 hours with a meal as needed for moderate pain Oxycodone 5 mg take 1-2 every 4-6 hours as needed for severe pain You may use [id number] Tylenol (acetaminophen) as needed for mild pain. These pain medications may be taken all at once or in different combinations as needed. Also, recommend Colace (docusate) as a stool softener as surgery and pain medicine cause constipation. You may try wmil-flt-[id number] diphenhydramine (Benadryl) 25-50 mg nightly as a sleep aid Dressings: Remove shoulder bandage after 3 days. Leave the sticky Steri-Strips in place until they fall off or remove them after you shower. Cover the incisions with Band-Aids or leave them open to air. You may shower after 5 days. Follow-up: 10-[address] Hearn You may take off the leg compression stockings this evening at home. You may also leave them on a few days longer if you have a history of leg swelling or edema. Let us know right away if you develop any redness, drainage, fevers, chest pain, or trouble breathing. Do not drink alcohol or drive for at least 24 hours after anesthesia. Please call the office during business hours with any questions or concerns. Discharge Orders Discharge Orders: Discharge Order (Routine); Ordered 07/21/22 Ordered By: Jamar Hearn DS: Diagnosis Discharge Diagnosis (1) Arthritis of right shoulder region: Status: Acute (2) SLAP lesion of right shoulder: Status: Acute
[2022-07-21] MEDS: EPINEPHrine 30 MG/30 ML VIAL (12:31)
--- NOTE | 2022-07-21 12:35 | ROE_ITS ---
Operative Note Operative Note DATE/TIME OF PROCEDURE: Operation Date: 07/21/22 11:10 Case Times Into Pre-Op: 07/21/22 09:15 PRE-OP DIAGNOSIS: Right: 1. Glenohumeral arthritis 2. SLAP tear 3. Bursitis POST-OP DIAGNOSIS: same PROCEDURE: Right: 1. Arthroscopic biceps tenodesis, CPT# 12082. This involved arthroscopically suturing and reattaching the long head of the biceps tendon to the proximal humerus at the superior margin of the bicipital groove with a screw at the correct tension. 2. Extensive debridement, CPT# 41707. This involved using arthroscopic hand inst ruments, power instruments, and radiofrequency instruments to release the long head of the biceps tendon and debride areas of cartilage tearing, labral tearing, synovitis, partial articular rotator cuff tearing, and release MGHL working within the glenohumeral joint anteriorly, superiorly and posteriorly. 3. Subacromial decompression, CPT# 22242. This involved using arthroscopic power instruments and a radiofrequency wand to complete a bursectomy. The radiology practitioner assistant was medically required in order to help assist in techniques above, which require positioning the arm, holding the arthroscope, and m anipulating multiple instruments and sutures at the same time. This cannot be done without the help of an experienced radiology practitioner assistant. SURGEON: Jamar Hearn [employer] CERTIFIED ORTHOTIST: Shania Briscoe ANESTHESIA TYPE: General LMA/ETT and Primary Nerve Block Refer to Anesthesia Record ESTIMATED BLOOD LOSS: 10 PATHOLOGY: none sent COMPLICATIONS: None Patient was transported to: PACU Patient's condition: stable Implants/Explants: Implants/Explants Operation Date: 07/21/22 11:10 <No data on this case meets the specified criteria> Additional Implants/Explants: Arthrex: 4.75mm [place] x 1 Indications: The patient was diagnosed with the above conditions and appropriately indicated for surgical intervention. Please see complete medical record for details. Findings: Exam under anesthesia: Moderately preserved range of motion with forward elevation about 135 degrees, external rotation about 45 degrees Glenohumeral joint: Significant anterior central high?grade chondromalacia glenoid. Only moderate grade remaining glenoid. Humeral head with only mild chondromalacia. Intact subscapularis. Mild undersurface supraspinatus and infraspinatus articular fraying minimal footprint involvement. Significant anterior labral tearing and detachment adjacent to the site of arthritis that extended superiorly and posterior superiorly involving the biceps anchor. No s ignificant impinging inferior humeral head bone spur. Subacromial space: Moderate bursitis. No bursal rotator cuff tear or significant undersurface acromial bone spur. Procedure Description: In the operating room, general anesthesia was induced. Bilateral shoulders were examined. The patient was positioned in the beachchair position. All bony prominences were well-padded. Preoperative antibiotics were administered. The shoulder was prepped and draped in the usual sterile fashion. The correct patient, procedure, and side of the procedure were all verified prior to incision. Starting through the posterior portal a standard complete diagnostic arthroscopy was performed of the glenohumeral joint including inspection of the long head of the biceps, anterior and superior labrum, subscapularis tendon, supraspinatus and infraspinatus tendons, and axillary recess. An anterior portal was established under direct visualization. The glenoid and humeral head cartilage as well as the posterior labrum were inspected from an anterior viewing portal. Significant findings and interventions noted above. An all-arthroscopic suprapectoral biceps tenodesis was performed through an anterior portal using a Loop N Tack method with a SutureTape FiberLink cinched around and through the tendon. The biceps was tenotomized from the labrum and fixated with a suture anchor at the superior margin of the bicipital groove. Starting through the posterior portal, the arthroscope was directed into the subacromial space. The anterior portal was redirected into the subacromial space as well. A lateral 50 yard line lateral portal was omitted. A combination of power instruments and a radiofrequency ablator were used to debride bursitis anteriorly, posteriorly, and laterally as well as expose and smooth bone spurring on the undersurface of the acromion. The coracoacromial ligament was preserved. The bursectomy was completed and the rotator cuff was thoroughly inspected with findings noted above. The shoulder was drained of arthroscopic fluid. All portal sites were copiously irrigated. These incisions were closed using 3-0 Monocryl in a buried fashion and then covered with Mastisol, Steri-Strips, Xeroform, dry gauze, and ABDs. The dressings were covered and secured with Medipore tape. The operative extremity was placed into a sling for immobilization. The patient awoke from anesthesia without complication and was transferred to the recovery room in a stable condition.
[2022-07-21] MEDS: Ketorolac 15 MG/ML VIAL IVP (12:49)
[2022-07-21] MEDS: fentaNYL 100 MCG/2 ML VIAL IVP (12:59)
--- NOTE | 2022-07-21 13:21 | W.ANESNERVE ---
Nerve Block Single Injection Procedure Date and Time Date Performed: 07/21/22 Procedure Start: 10:41 Location Where Procedure Performed Procedure Location: Day Surgery Unit Reason Performed: Postoperative Analgesia Requesting Provider: Jamar Hearn Timeout Performed Timeout Performed: Yes Monitoring Used ECG, Blood Pressure, SpO2 and See EMR for corresponding vital signs Sterility Sterility: Hand Hygiene, Surgical Cap, Surgical Mask, Sterile Gloves, Sterile Drape/Sheet and Chlorhexidine Sedation Given During Procedure Sedation Given (Indicate Dose Given): Versed IV Dose:: 2 mg Patient Mental Status Patient Mental Status: Sedate with meaningful communication Nerve Block 1st Nerve Block: Laterality: Right Block Type: Interscalene Needle / Catheter Used: 80mm SonoPlex II Local Anesthetic Bolus (Indicate Dose Given): Lidocaine used for local infiltration of skin, Injected in 3-5ml increments after negative blood aspiration and Bupivacaine 0.5% Dose:: 12 ml Additives (Indicate Dose Given): Precedex Dose:: 50 mcg Ultrasound: Sterile probe cover and gel used Ultrasound Image Saved?: Yes Nerve Stimulator: Not Used Paresthesia: Right (Transient, needle repositioned prior to injection) Paresthesia Duration: Transient Procedure Tolerated: No Complications and Patient tolerated well Procedure Outcome: Successful Performed By: Dorothy Castle Supervised By: Deidre Lopez
[2022-07-21] MEDS: oxyCODONE 5 MG TAB PO (13:27)
--- NOTE | 2022-07-21 14:16 | W.ANESPOSTOP ---
Postoperative Evaluation Date, Time and Location Date Performed: 07/21/22 Time Performed: 14:17 Patient Location: Day Surgery Unit Vital Signs Most Recent Imported Vital Signs: Most Recent Vital Signs Temp Pulse Resp BP Pulse Ox 36.2 C L 60 16 114/72 92 07/21/22 13:16 07/21/22 13:16 07/21/22 13:16 07/21/22 13:16 07/21/22 13:16 Pain Score Most Recent Pain Score: Most Recent Pain Score Pain Level 8 07/21/22 13:16 Assessment Mental Status: Awake (Alert & Oriented to Patient Baseline) Airway and Respiratory Function: Patent airway with normal (patient baseline) respiratory exam Cardiovascular Function: Hemodynamically Stable Hydration Status: Adequately Hydrated Nausea & Vomiting: No Nausea or Vomiting Pain: Pain is tolerable per patient (Pain level improved post oxycodone) Peripheral Nerve Block: Regional nerve block not resolved at time of post operative discharge (Discomfort in elbow only, Dr. Hearn aware, right hand numb except little finger)
== END 2022-07-21 15:01 | disposition home or self-care (01) ==
PROVIDERS: PCP Nurse Practitioner; Visit Provider Student in an Organized Health Care Education/Training Program
PROC: (CPT 29827; principal; 2022-07-21 11:00)
DX: M19.011 Primary osteoarthritis, right shoulder (principal); S43.431A Superior glenoid labrum lesion of right shoulder, initial encounter; M75.51 Bursitis of right shoulder; X58.XXXA Exposure to other specified factors, initial encounter
CPT/HCPCS: 29828; 29826; 29823; 76942; J0690; J1100; J1885; J2250; J2370; J2405; J2704; J3010

== ENCOUNTER 2023-04-03 02:28 | Outpatient (CLI) | payer BC, SELFPAY ==
[2023-04-03 07:32] LABS: HCT 39.4 % (40.0-50.0); HGB 13.7 g/dL (13.5-17.5); MCH 33.5 pg (27.0-33.0); MCHC 34.8 % (32.0-36.0); MCV 96 fL (80-95); Platelet Count 179 10^3/uL (130-400); RBC 4.09 10^6/uL (4.36-5.78); RDW 12.1 % (11.8-14.1); RDW-SD 43.2 fL; WBC 5.24 10^3/uL (4.4-10.8)
[2023-04-03 07:52] LABS: Hemoglobin A1C 5.4 % (<5.7)
[2023-04-03 08:07] LABS: ALT 32 U/L (16-63); AST 39 U/L (15-37); Albumin 3.2 g/dL (3.4-5.0); Alkaline Phosphatase 56 U/L (46-116); Anion Gap 6.3 mmol/L (3-11); BUN 14 mg/dL (7-18); Bilirubin, Total 0.6 mg/dL (0.2-1.0); CO2 30.7 mmol/L (21.0-32.0); CREATININE 0.9 mg/dL (0.70-1.30); Calcium 8.9 mg/dL (8.5-10.1); Calculated LDL 47 mg/dL (<100); Chloride 100 mmol/L (98-107); Cholesterol 142 mg/dL (<200); Estimated GFR 94.19 (mL/min/1.73m2); Glucose 120 mg/dL (74-106); HDL Cholesterol 59 mg/dL (40-60); Potassium 3.2 mmol/L (3.5-5.1); Sodium 137 mmol/L (136-145); Total Protein 7.3 g/dL (6.4-8.2); Triglyceride 180 mg/dL (<150)
[2023-04-03 18:30] LABS: PSA, Screening 0.7 ng/mL (<=4.5)
== END 2023-04-03 02:29 | disposition home or self-care (01) ==
LOC: LBO 02:28
PROVIDERS: PCP Nurse Practitioner Family; Visit Provider Nurse Practitioner Family
DX: Z00.00 Encounter for general adult medical examination without abnormal findings (principal); E78.1 Pure hyperglyceridemia; R73.09 Other abnormal glucose; I10 Essential (primary) hypertension; M10.072 Idiopathic gout, left ankle and foot; Z12.5 Encounter for screening for malignant neoplasm of prostate; Z80.42 Family history of malignant neoplasm of prostate
CPT/HCPCS: 36415; 80053; 80061; 84153; 85027; 83036

== ENCOUNTER 2023-07-12 08:54 | Outpatient (CLI) | payer BC, SELFPAY ==
--- NOTE | 2023-07-12 08:36 | DI.RAD_ITS ---
Exam(s) XR SHOULDER RT COMPLETE 2+V EXAM: XR SHOULDER RT COMPLETE 2+V CLINICAL HISTORY: pain. TECHNIQUE: 2D digital imaging was performed of the right shoulder. Two images were obtained. AP, G rashey, Y-view and axillary views were obtained. COMPARISON: CR XR SHOULDER RT COMPLETE 2+V from 07/13/2021 FINDINGS: BONES: No acute fracture is present. No bony destructive lesion is seen. JOINTS: No dislocation present. There are mild degenerative changes of the glenohumeral joint with denia int space narrowing and spur off the inferior aspect of the humeral head. The acromioclavicular join t is unremarkable. SOFT TISSUE: Normal. IMPRESSION: Mild degenerative changes of the glenohumeral joint. DATA REPOSITORY: RADIATION DOSE DELIVERED:
== END 2023-07-12 08:55 | disposition home or self-care (01) ==
LOC: DIORS 08:54
PROVIDERS: PCP Nurse Practitioner Family; Referring Provider Nurse Practitioner Family; Visit Provider Physician Assistant
DX: M19.011 Primary osteoarthritis, right shoulder (principal)
CPT/HCPCS: 73030

== ENCOUNTER 2023-08-31 02:51 | Outpatient (CLI) | payer BC, SELFPAY ==
--- NOTE | 2023-08-31 09:30 | DI.RAD_ITS ---
Exam(s) RF JOINT INJ. FLUORO GUID RAD EXAM: RF JOINT INJ. FLUORO GUID RAD CLINICAL HISTORY: R SHOULDER PAIN, SLAP LESION RT SHOULDER, ARTHRITIS, S43.431A, M19.011. The Patie nt has had persistent right shoulder pain. Noninvasive measures have been tried. To serve as both diagnostic and therapeutic, an injection under fluoroscopy was recommended. The risks of the procedu re were discussed with their Orthopedic provider and the patient elected to proceed. TECHNIQUE: 2D and realtime digital imaging was performed. CONTRAST MATERIAL: Water soluble contrast was utilized. COMPARISON: No exams were available for comparison FINDINGS: The Patient was greeted in the fluoroscopy room. The correct side was identified and the consent was reviewed with the patient and was signed. The patient was properly positioned on the fluoroscopy ta ble. The right shoulder was then prepped with Chloraprep and draped. The right shoulder injection s tarting point was identified by the bony landmarks and fluoroscopy. The skin and soft tissue in the tract of the injection was anesthetized with 1% Lidocaine. A spinal needle was then inserted into th e right shoulder joint at the level of the glenohumeral joint under fluoroscopic guidance. A small a mount of Omnipaque solution was injected to confirm intraarticular placement. Once confirmed, the ri ght shoulder was injected with 5cc of a solution containing 0.5% Bupivaine and 80 mg of Depo-Medrol. A bandaid was placed on the injection site. The patient tolerated the procedure well and left the d epartment in good condition. IMPRESSION: Successful right shoulder injection. RADIATION DOSE DELIVERED: Emirr=3.46 mGy
[2023-08-31] MEDS: Normal Saline - Diluent 50 ML VIAL IJ (15:58)
[2023-08-31] MEDS: Omnipaque 300 MG/ML 10 ML BTL IJ (15:58)
[2023-08-31] MEDS: methylPREDNISolone ACETATE 40 MG/ML VIAL IJ (15:58)
[2023-08-31] MEDS: Bupivacaine 0.5% Pres-Free 10 ML VIAL IJ (15:59)
== END 2023-08-31 03:11 ==
LOC: DI 02:52
PROVIDERS: PCP Nurse Practitioner Family; Visit Provider Student in an Organized Health Care Education/Training Program
DX: M19.011 Primary osteoarthritis, right shoulder (principal); S43.431A Superior glenoid labrum lesion of right shoulder, initial encounter; X58.XXXA Exposure to other specified factors, initial encounter
CPT/HCPCS: 20610; 77002; J1030

== ENCOUNTER 2024-04-10 05:17 | Outpatient (CLI) | payer BC, SELFPAY ==
[2024-04-10 12:31] LABS: HCT 40.4 % (40.0-50.0); HGB 13.6 g/dL (13.5-17.5); MCHC 33.7 % (32.0-36.0); MCV 98 fL (80-95); Platelet Count 187 10^3/uL (130-400); RBC 4.12 10^6/uL (4.36-5.78); RDW 12.5 % (11.8-14.1); RDW-SD 45.1 fL; WBC 7.31 10^3/uL (4.4-10.8)
[2024-04-10 12:54] LABS: BUN 15 mg/dL (7-18); CREATININE 0.9 mg/dL (0.70-1.30); Calcium 8.7 mg/dL (8.5-10.1); Calculated LDL 28 mg/dL (<100); Chloride 102 mmol/L (98-107); Cholesterol 129 mg/dL (<200); Estimated GFR 93.61 (mL/min/1.73m2); Glucose 112 mg/dL (74-106); HDL Cholesterol 60 mg/dL (40-60); Potassium 3.7 mmol/L (3.5-5.1); Sodium 140 mmol/L (136-145); Triglyceride 208 mg/dL (<150)
[2024-04-10 22:53] LABS: PSA, Screening 0.8 ng/mL (<=4.5)
== END 2024-04-10 05:18 | disposition home or self-care (01) ==
LOC: LOS 05:17
PROVIDERS: PCP Nurse Practitioner Family; Visit Provider Nurse Practitioner Family
DX: Z00.00 Encounter for general adult medical examination without abnormal findings (principal); S43.431A Superior glenoid labrum lesion of right shoulder, initial encounter; Z80.42 Family history of malignant neoplasm of prostate; I10 Essential (primary) hypertension; E78.1 Pure hyperglyceridemia; X58.XXXA Exposure to other specified factors, initial encounter
CPT/HCPCS: 36415; 80048; 80061; 84153; 85027

== ENCOUNTER → 2024-05-29 02:28 | Outpatient (CLI) | payer BC, SELFPAY ==
--- NOTE | 2024-05-29 06:45 | DI.MRI_ITS ---
Exam(s) MR CERVICAL SPINE WO EXAM: MR CERVICAL SPINE WO CLINICAL HISTORY: Chronic neck pain with worsening,M54.2 TECHNIQUE: Multiplanar multisequence MRI of the cervical spine was performed without intravenous con trast. COMPARISON: MR MR CERVICAL SPINE WO from 06/11/2021 FINDINGS: CERVICOMEDULLARY JUNCTION: Intact with no evidence of cerebellar tonsillar ectopia. No obvious abnor mality of the odontoid process. No evidence of Chiari 1 malformation. CERVICAL SPINAL CORD: There is no abnormal signal in the cervical spinal cord and no evidence of foca l cord atrophy nor focal cord swelling. OSSEOUS:There are no cervical fractures nor listhesis evident. No significant osseous lesions in the cervical vertebrae. INDIVIDUAL LEVELS: C2-3: No disc herniation or central canal stenosis. There is fusion across the left facet joint, sim ilar to previous. Right facet joint unremarkable. There is no foraminal stenosis on either side at this level. C3-4: Normal disc height. There is central subligamentous annular bulging at this level, slightly mo re so than on the previousMRI of 3 years ago. This effaces the anterior thecal sac but not the spina l cord and there is no abnormal signal in the spinal cord. Central canal dimensions are lower normal . There are advanced degenerative changes in both facet joints at this level, slightly progressed fr om previous study of 2020. There is moderate foraminal stenosis on the left side. Mild foraminal st enosis on the right side. C4-5: This level exhibits mild disc space narrowing. Posteriorly there is a central-left paracentral disc protrusion which has increased in size from 2020, extending posteriorly 2.8 mm and approximatel y 9 mm wide, effacing the anterior thecal sac and slightly indenting the anterior aspect of the spina l cord at this level. Mild central spinal canal stenosis. There does not appear to be obvious abnor mal signal within the cord at this level. There are mild degenerative changes in the left facet join t. Moderate degenerative changes in the right facet joint. Moderate foraminal stenosis on the right side. Mild foraminal stenosis on the left side. The disc protrusion does not extend into the exiti ng left neural foramen. C5-6: This level exhibits relatively preserved disc height. There is a posterolateral right disc pro trusion again noted which exhibits minimal if any significant change compared to images of 06/11/2021 . This disc protrusion extends posteriorly 3 mm and is 9 mm wide, indenting the thecal sac and anter ior right side of the cervical spinal cord at this level (there is no abnormal signal in the cord at this level). Central canal dimensions are lower normal. There are no Luschka joint osteophytes evid ent at this level and minimal degenerative changes in the facet joints. There is mild bilateral fora nadine stenosis. C6-7: This level exhibits preserved disc height and signal. Mild annular bulging noted but without a dominant disc herniation or central spinal canal stenosis. Facet joints appear unremarkable bilater ally. There are no Luschka joint osteophytes. There is no significant foraminal stenosis on either side at this level. C7-T1: No disc herniation nor central canal stenosis. No facet arthropathy.No foraminal stenosis. IMPRESSION: 1. Compared to the prior MRI scan of May 2021 there again noted multilevel findings, with the main d ifference being that the central-left paracentral disc protrusion at C4-5 has increased in size as de scribed above, presently facing the anterior thecal sac and slightly indenting the anterior aspect of the spinal cord at this level. There is mild central spinal canal stenosis at this level. Some fac et arthropathy with moderate foraminal stenosis on the right side and milder foraminal stenosis on th e left side. The disc herniation does not appear to extend into the exiting left neural foramen. 2. C5-6 level posterolateral right disc protrusion exhibits minimal if any significant change when co mpared to 06/11/2021. 3. Other findings as above. DATA REPOSITORY:
== END ==
PROVIDERS: PCP Nurse Practitioner Family; Visit Provider Nurse Practitioner Family
DX: M54.2 Cervicalgia (principal); M50.221 Other cervical disc displacement at C4-C5 level; M50.222 Other cervical disc displacement at C5-C6 level; M48.02 Spinal stenosis, cervical region; M47.812 Spondylosis without myelopathy or radiculopathy, cervical region
CPT/HCPCS: 72141

== ENCOUNTER 2025-04-09 02:08 | Outpatient (CLI) | payer BC, SELFPAY ==
[2025-04-09 07:55] LABS: ALT 24 U/L (16-63); AST 33 U/L (15-37); Albumin 3.3 g/dL (3.4-5.0); Alkaline Phosphatase 57 U/L (46-116); Anion Gap 5.6 mmol/L (3-11); BUN 18 mg/dL (7-18); Bilirubin, Total 0.7 mg/dL (0.2-1.0); CO2 30.4 mmol/L (21.0-32.0); CREATININE 0.8 mg/dL (0.70-1.30); Calcium 8.7 mg/dL (8.5-10.1); Calculated LDL 55 mg/dL (<100); Chloride 101 mmol/L (98-107); Cholesterol 159 mg/dL (<200); Glucose 112 mg/dL (74-106); HDL Cholesterol 55 mg/dL (>or=40); Potassium 3.9 mmol/L (3.5-5.1); Sodium 137 mmol/L (136-145); Total Protein 7.3 g/dL (6.4-8.2); Triglyceride 245 mg/dL (<150)
[2025-04-09 20:08] LABS: PSA, Screening 0.9 ng/mL (<=4.5)
== END 2025-04-09 02:09 | disposition home or self-care (01) ==
LOC: LBO 02:09
PROVIDERS: PCP Nurse Practitioner Family; Visit Provider Nurse Practitioner Family
DX: I10 Essential (primary) hypertension; E78.1 Pure hyperglyceridemia; Z12.5 Encounter for screening for malignant neoplasm of prostate
CPT/HCPCS: 36415; 80053; 80061; 84153